=== PATIENT | male | born 1960 | race Two or more races ===

== ENCOUNTER 2021-01-03 17:13 | Emergency (ER) | payer MEDICAID ==
[~2021-01-03] VITALS: Ht 177.8 cm; Wt 85.0 kg
--- NOTE | 2021-01-03 17:54 | NUR ---
This pt was BIB [facility] for ETOH and inability to ambulate on his own. Pt became aggressive with this RN making a fist and pointing. Pt attempted to get out of bed. Victor Manueluirty called. This RN able to communicate with pt about POC including his need to sleep and not put himself at risk by trying to walk and then potentially falling. Pt layed back in bed. Bed rails up x2. This RN making frequent checks on pt to see if he's attempting to get out of bed, no attempts so far.
--- NOTE | 2021-01-03 19:00 | NUR ---
Pt requesting food, given. Bedside report to ANDREA Chung.
--- NOTE | 2021-01-03 19:04 | NUR ---
report recieved from abebe la. pt provided snacks per request, head ct ordered
--- NOTE | 2021-01-03 19:30 | NUR ---
pt to ct
--- NOTE | 2021-01-03 19:57 | NUR ---
PT ABLE TO WALK AND USE URINAL WITHOUT ASSISTANCE
[2021-01-03 20:06] VITALS: BP 134/85
== END 2021-01-03 20:17 | disposition home or self-care (01) ==
LOC: ED 18:47
DX: S09.90XA Unspecified injury of head, initial encounter (principal); F10.220 Alcohol dependence with intoxication, uncomplicated; X58.XXXA Exposure to other specified factors, initial encounter; Y93.89 Activity, other specified; Y92.89 Other specified places as the place of occurrence of the external cause; Y99.8 Other external cause status; Y90.0 Blood alcohol level of less than 20 mg/100 ml
CPT/HCPCS: 70450; 99284

== ENCOUNTER 2021-01-04 02:15 | Emergency (ER) | payer MEDICAID ==
[~2021-01-04] VITALS: Ht 182.9 cm; Wt 99.0 kg
--- NOTE | 2021-01-04 02:25 | NUR ---
PT BIB [facility] FOR ETOH INTOXICATION AND UNABLE TO AMBULATE. PT WAS FOUND [facility] LAYING ON THE GROUND. PT RESPONDS TO LOUD VERBAL STIMULI. VSS. ARANA AT BEDSIDE. CALL LIGHT IN REACH
[2021-01-04] MEDS ORDERED: THIAMINE 100MG TABLET PO ONE (02:30)
[2021-01-04 03:07] LABS: BASOPHILS % (AUTO) 0 % (0-1); EOSINOPHILS % (AUTO) 3 % (1-7); LYMPHOCYTES % (AUTO) 40 % (22-44); MEAN CORPUSCULAR HEMOGLOBIN 32.9 pg (27.5-34.5); MEAN CORPUSCULAR HGB CONC 34.2 g/dL (33.2-36.2); MEAN PLATELET VOLUME 7.5 fL (7.4-10.4); MONOCYTES % (AUTO) 11 % (2-9); NEUTROPHILS % (AUTO) 46 % (42-75); PLATELET COUNT 219 x10^3/uL (130-400); RED BLOOD COUNT 4.82 x10^6/uL (4.38-5.82); RED CELL DISTRIBUTION WIDTH 15.2 % (9.4-14.8)
[2021-01-04 03:16] LABS: ALBUMIN 3.3 g/dL (3.4-5.0); ANION GAP 8 mmol/L (5-15); CALCIUM 7.7 mg/dL (8.5-10.1); CHLORIDE 112 mmol/L (98-107); CREATININE 0.93 mg/dL (0.7-1.3)
[2021-01-04 03:19] LABS: MD NO
--- NOTE | 2021-01-04 04:09 | NUR ---
pt sleeping. vss. even rise and fall of chest observed. call light in reach
--- NOTE | 2021-01-04 05:17 | NUR ---
PT SLEEPING. PT ROUSES TO LOUD VOICE AND THEN FALLS BACK TO SLEEP. VSS. CALL LIGHT IN REACH
--- NOTE | 2021-01-04 06:12 | NUR ---
PT SLEEPING. EVEN RISE AND FALL OF CHEST OBSERVED. VSS. CALL LIGHT IN REACH
[2021-01-04 06:14] VITALS: BP 150/98
--- NOTE | 2021-01-04 06:29 | NUR ---
PT WOKE UP AND AMBULATED TO BATHROOM WITH A STEADY GAIT. PT SAID HE WANTED TO LEAVE. PT GIVEN CAB VOUCHER FOR SAFE DISCHARGE.
== END 2021-01-04 06:32 | disposition home or self-care (01) ==
LOC: ED 02:37
DX: F10.220 Alcohol dependence with intoxication, uncomplicated (principal); Z72.9 Problem related to lifestyle, unspecified; F12.20 Cannabis dependence, uncomplicated; Y90.0 Blood alcohol level of less than 20 mg/100 ml
CPT/HCPCS: 36415; 80048; 80320; 82040; 85025; 99283; G0480

== ENCOUNTER 2021-01-04 11:46 | Emergency (ER) | payer MEDICAID ==
[~2021-01-04] VITALS: Ht 172.7 cm; Wt 90.0 kg
--- NOTE | 2021-01-04 12:00 | NUR ---
PT BIB EMS FOR ETOH. WAS FOUND DOWN BY ZAIRA BAKER. PT WAS RECENTLY DCd FROM ER FOR SAME. [place] [facility] [place] RAILS UP.
--- NOTE | 2021-01-04 12:08 | NUR ---
pt refusing labs, swearing at staff, swinging arms and saying "don't touch me". provider notified. as
--- NOTE | 2021-01-04 12:22 | NUR ---
P/T stated that he can't blow anymore and doesn't want to attempt another test at this time @0037
--- NOTE | 2021-01-04 13:02 | NUR ---
Attempted to breathalyze pt uncoopertive.
--- NOTE | 2021-01-04 13:17 | NUR ---
pt sleeping, vss. as
--- NOTE | 2021-01-04 14:10 | NUR ---
resting in bed vss. as
--- NOTE | 2021-01-04 14:40 | NUR ---
ATTEMPTED BREATHALYZER 3RD TIME. PT UNCOOPERATIVE.
--- NOTE | 2021-01-04 14:44 | NUR ---
P/T DOESN'T FOLLOW COMMANDS BY NOT BLOWING ENOUGH TO GET A BREATHALIZER TEST DONE @2287
--- NOTE | 2021-01-04 15:17 | NUR ---
pt resting in bed, refusing to leave, asking for food, drowsing. as
[2021-01-04 15:18] VITALS: BP 149/87
== END 2021-01-04 15:33 | disposition home or self-care (01) ==
LOC: ED 11:53
DX: F10.220 Alcohol dependence with intoxication, uncomplicated (principal); R41.82 Altered mental status, unspecified; Y90.0 Blood alcohol level of less than 20 mg/100 ml
CPT/HCPCS: 99283

== ENCOUNTER 2021-01-06 09:51 | Emergency (ER) | payer MEDICAID, OTHER ==
[~2021-01-06] VITALS: Ht 177.8 cm; Wt 90.9 kg
--- NOTE | 2021-01-06 10:00 | NUR ---
BIB EMS FOR ETOH. F[facility]. PEPPER EMBASSADORS WALKED BY AND CALLED 911 TO HAVE PT'S TAKEN AWAY FROM AREA. PT NOTED TO BE 90.9 RECTAL TEMP. PROVIDED W/ WARM BLANKETS AND BEAR HUGGER.
--- NOTE | 2021-01-06 10:05 | NUR ---
ERP DR. ALFREDO AT BEDSIDE FOR EVAL.
--- NOTE | 2021-01-06 10:10 | NUR ---
WARMED IVF INITIATED FOR PT. ROONEY INSERTED AND IRRIGATED.
[2021-01-06] MEDS ORDERED: SODIUM CHLORIDE FLUSH 10ML SYR IVF ONE (10:30)
[2021-01-06] MEDS ORDERED: SODIUM CHLORIDE 0.9% 1,000ML IVBOLUS ONE (10:30)
--- NOTE | 2021-01-06 10:40 | NUR ---
PT TOLERATED ROONEY HAND IRRIGATION W/ WARMED FLUIDS
--- NOTE | 2021-01-06 10:56 | NUR ---
PT RESTING ON GURNEY. NADN. HOWARD.
[2021-01-06 11:00] LABS: BASOPHILS % (AUTO) 1 % (0-1); EOSINOPHILS % (AUTO) 1 % (1-7); LYMPHOCYTES % (AUTO) 25 % (22-44); MEAN CORPUSCULAR HEMOGLOBIN 32.3 pg (27.5-34.5); MEAN PLATELET VOLUME 8.2 fL (7.4-10.4); MONOCYTES % (AUTO) 13 % (2-9); NEUTROPHILS % (AUTO) 62 % (42-75); PLATELET COUNT 229 x10^3/uL (130-400); RED BLOOD COUNT 4.92 x10^6/uL (4.38-5.82); RED CELL DISTRIBUTION WIDTH 14.8 % (9.4-14.8)
[2021-01-06 11:03] LABS: MD NO
[2021-01-06 11:12] LABS: ALANINE AMINOTRANSFERASE 258 U/L (12-78); ALBUMIN 3.4 g/dL (3.4-5.0); ANION GAP 10 mmol/L (5-15); CALCIUM 8.3 mg/dL (8.5-10.1); CHLORIDE 108 mmol/L (98-107); CREATININE 0.84 mg/dL (0.7-1.3)
[2021-01-06 11:14] LABS: ALKALINE PHOSPHATASE 166 U/L (45-117); TOTAL PROTEIN 8.5 g/dL (6.4-8.2)
--- NOTE | 2021-01-06 11:36 | NUR ---
PT RESTING ON PATRICKRJACQUELINE. NADN. TEMP SLOWLY INCREASING.
--- NOTE | 2021-01-06 12:07 | NUR ---
REPORT GIVEN TO ANDREA RICKETTS.
--- NOTE | 2021-01-06 12:07 | NUR ---
PT RESTING ON PATRICKRJACQUELINE. NADN. TEMP SLOWLY INCREASING.
--- NOTE | 2021-01-06 13:17 | NUR ---
PT IN BED WITH NO SIGNS OR SYMPTOMS OF ACUTE DISTRESS NOTED RESPIRATIONS EVEN AND UNLABORED, ALERT AND AWAKE, STATES HIS NAME IS ANDREA. PT DENIES PAIN REPORTS BEING SLEEPY. PT ON CAR SALTER WITH MADISON HUGGER IN PLACE AND WARMED FLUIDS INFUSING. BED RAILS UP BILATERALLY AND CALL LIGHT WITHIN REACH
--- NOTE | 2021-01-06 13:53 | NUR ---
pt noted on monitor to desat to 88% with good pleth, rn in room to rouse pt, pt alert to voice, room air sat improving to 96% with waking, pt noted to continue to be somulent and desats when sleeping. this rn placed nc on pt at 2l/min to assist ventilation while sleeping. pt denies need or discomfort at this time no signs or symptoms of acute distress noted respirations even and unlabored. pt continues on indian blanket weaver with heather hugger and warmed fluids in place, bed rails up bilaterally and call light within reach
[2021-01-06 15:13] VITALS: BP 124/77
--- NOTE | 2021-01-06 15:14 | NUR ---
pt arousable to voice denies pain or discomfort no signs or symptoms of acute distress noted respirations even and unlabored supported by nc with o2 at 2l/min. pt denies pain or discomfort, oriented to presence of bergman catheter in place. pt instructed not to tug on bergman, pt verbalizes understanding and agreement. pt returns to position of comfort. hall monitor and heather hugger in place, bed rails up bilaterallyand call light within reach.
--- NOTE | 2021-01-06 15:50 | NUR ---
pt alert and awake asking to move bowels, rn in room to remove bergman. pt ambulated with steady gait and good balance, md in room to assess, states pt ready to dc. pt states he wants to eat before he goes. this rn ordered a dietary tray for pt. pt in bed with registered nurse cardiac in place satting well on room air, no signs or symptoms of acute distress noted respirations even and unlabored
--- NOTE | 2021-01-06 16:18 | NUR ---
pt with sandwich and meal tray at bedside, encouraged to finish his food so he can discharge. pt verbalizes understanding and agreement in bed with no signs or symptoms of acute distress noted respirations even and unlabored
--- NOTE | 2021-01-06 16:48 | NUR ---
pt up and awake, denies pain or discomfort provided meal tray to go. pt iv dc'd pt putting on clothes and ready to leave with all belongings and a snack, no signs or symptoms of acute distress noted respirations even and unlabored
== END 2021-01-06 16:54 | disposition home or self-care (01) ==
LOC: ED 16:00 → MERGE 17:16
DX: T68.XXXA Hypothermia, initial encounter (principal); K70.10 Alcoholic hepatitis without ascites; F10.120 Alcohol abuse with intoxication, uncomplicated; R94.31 Abnormal electrocardiogram [ECG] [EKG]; X58.XXXA Exposure to other specified factors, initial encounter; Y93.89 Activity, other specified; Y92.89 Other specified places as the place of occurrence of the external cause; Y99.8 Other external cause status; Y90.9 Presence of alcohol in blood, level not specified
CPT/HCPCS: 36415; 51702; 80053; 85025; 93005; 99285

== ENCOUNTER 2021-02-08 03:26 | Emergency (ER) | payer MEDICAID ==
[~2021-02-08] VITALS: Ht 172.7 cm; Wt 91.0 kg
--- NOTE | 2021-02-08 03:45 | NUR ---
PATIENT STATES "IM GOING TO KILL MYSELF FOR FREE. JUST WATCH. I WANT TO JUMP OFF A BRIDGE". PATIENT REPORTS HE HAS BEEN DRINKING ETOH TONIGHT BUT ONLY ORIENTED TO SELF AT THIS TIME. DR. DURHAM TO BEDSIDE. RN REPORTED OFF [facility] REPORT AND NEW REPORT OF [facility] AT THIS TIME. PATIENT ALSO REPORTS AH/VH BUT DENIES HI. PATIENT'S EYES ARE BLOOD SHOT AND RED AND PATIENT REPORTS THAT HE HAS NOT SLEPT IN APPROX. 5 DAYS. PATIENT REMOVES CLOTHING WITH ASSISTANCE AND ALL BELONGINGS PLACED IN PATIENT BELONGING BAGS AND PLACED IN SECURED LOCKED CABINET IN ER. HOSPITAL GOWN APPLIED TO PATIENT. WARM BLANKET PROVIDED. PATIENT DOES HAVE FLAKING SKIN TO BILATERAL FEET WITH MILD ERRYTHEMA. CALL VALLE IN REACH. NEURO CHECKS ORDERED. WILL CONTINUE TO MONITOR.
[2021-02-08 03:56] LABS: BASOPHILS % (AUTO) 0 % (0-1); EOSINOPHILS % (AUTO) 5 % (1-7); LYMPHOCYTES % (AUTO) 28 % (22-44); MEAN CORPUSCULAR HEMOGLOBIN 33.2 pg (27.5-34.5); MEAN CORPUSCULAR HGB CONC 34.3 g/dL (33.2-36.2); MONOCYTES % (AUTO) 4 % (2-9); NEUTROPHILS % (AUTO) 63 % (42-75); PLATELET COUNT 187 x10^3/uL (130-400); RED BLOOD COUNT 4.39 x10^6/uL (4.38-5.82); RED CELL DISTRIBUTION WIDTH 14.6 % (9.4-14.8)
[2021-02-08 03:57] LABS: MD NO
[2021-02-08] MEDS ORDERED: THIAMINE 100MG TABLET PO ONE (04:00)
[2021-02-08 04:08] LABS: ALANINE AMINOTRANSFERASE 208 U/L (12-78); ALBUMIN 2.9 g/dL (3.4-5.0); ANION GAP 9 mmol/L (5-15); CALCIUM 7.5 mg/dL (8.5-10.1); CHLORIDE 105 mmol/L (98-107); CREATININE 0.77 mg/dL (0.7-1.3); SALICYLATE LEVEL < 1.7 mg/dL (2.8-20.0)
[2021-02-08 04:20] LABS: ALKALINE PHOSPHATASE 178 U/L (45-117); TOTAL PROTEIN 7.8 g/dL (6.4-8.2)
[2021-02-08 04:40] LABS: AMPHETAMINE SCREEN, URINE Positive (Negative); BARBITURATE SCREEN, URINE Negative (Negative); BENZODIAZEPINE SCREEN, URINE Negative (Negative); CANNABINOID SCREEN, URINE Positive (Negative); COCAINE SCREEN, URINE Negative (Negative); METHADONE SCREEN, URINE Negative (Negative); OPIATE SCREEN, URINE Negative (Negative)
[2021-02-08] MEDS ORDERED: THIAMINE 100MG TABLET ONE (04:57)
--- NOTE | 2021-02-08 05:00 | NUR ---
ATTEMPTED TO PLACE N ON PATIENT HIS OXYGEN SATURATION ECREASED TO 88-89%. I NOTIFIED PATIENT OF WHAT I WAS DOING BEFORE DOING IT. WHEN I ATTEMPTED TO PLACE THIS ON PATIENT, PATIENT SWATTED ME AWAY AND HIT MY HANDS WITH MULTIPLE ATTEMPTS AND REPEATED "NO". RN EXPLAINED AGAIN TO PATIENT REASON HE NEEDED THIS AND PATIENT STATED "YOURE GOING TO KILL ME. NO. I DONT WANT IT". RN REASSURED PATIENT I WAS NOT TRYING TO HARM HIM BUT HE WAS NOT GETTING ENOUGH OXYGEN TO HIS BRAIN WHEN HE WAS SLEEPING DUE TO ETOH AND PATIENT STATED "NO. I DONT WANT IT". AT THIS TIME PATIENT DECLINES NC
--- NOTE | 2021-02-08 06:00 | NUR ---
PATIENT RESTING IN BED IN NAD WITH EYES CLOSED. CALL VALLE IN REACH. SAFETY MAINTAINED. WILL CONTINUE TO MONITOR
--- NOTE | 2021-02-08 06:51 | NUR ---
REPORT GIVEN TO LISBETH MENDEZ
--- NOTE | 2021-02-08 06:51 | NUR ---
REPORT FROM ANDREA MAYA FOR TRANSFER OF PATIENT CARE.
--- NOTE | 2021-02-08 07:12 | NUR ---
PATIENT LAYING IN GURNEY WITH EYES CLOSED, RESP EVEN AND UNLABORED, SUICIDE PRECAUTIONS IN PLACE, FREQUENT ROUNDING IN PLACE.
--- NOTE | 2021-02-08 07:51 | NUR ---
FOOD TRAY ORDERED.
--- NOTE | 2021-02-08 08:30 | NUR ---
BREAKFAST TRAY PROVIDED, NADN, VSS, SUICIDE PRECAUTIONS IN PLACE, FREQUENT ROUNDING.
--- NOTE | 2021-02-08 10:16 | NUR ---
PATIENT LAYING IN GURNEY WITH EYES CLOSED, RESP EVEN AND UNLABORED, SUICIDE PRECAUTIONS IN PLACE, FREQUENT ROUNDING.
--- NOTE | 2021-02-08 10:24 | NUR ---
PATIENT'S O2 DROPPED TO 85%, PLACED PATIENT ON 2 LPM NC WITHOUT DIFFICULTY, O2 SATURATION NOW 94%.
--- NOTE | 2021-02-08 11:05 | NUR ---
PATIENT AMBULATED TO BATHROOM WITH STEADY GAIT.
--- NOTE | 2021-02-08 11:41 | NUR ---
BREATHYLIZER PERFORMED, 0.171, INFORMED REBECCA SOOD. UNABLE TO EVALUATE PATIENT AT THIS TIME UNTIL HE CARMEN UP MORE.
--- NOTE | 2021-02-08 13:11 | NUR ---
LUNCH TRAY PROVIDED TO PATIENT, NADN, VSS, FREQUENT ROUNDING.
--- NOTE | 2021-02-08 13:38 | NUR ---
URINAL EMPTIED AND PLACED BACK WITHIN REACH. PATIENT LAYING IN GURNEY WITH EYES CLOSED, RESP EVEN AND UNLABORED, SIDE RAILS UP X2, CONNECTED TO MONITOR, FREQUENT ROUNDING. WAITING FOR PATIENT TO SOBER UP BEFORE PSYCH EVAL.
--- NOTE | 2021-02-08 13:50 | NUR ---
JULISSA PERSONN AT BEDSIDE FOR EVALUATION.
[2021-02-08] MEDS ORDERED: ONDANSETRON ODT 4 MG ONE (14:12)
--- NOTE | 2021-02-08 14:25 | NUR ---
PATIENT MEDICATED PER eMAR, WAITING FOR RESPONSE FROM [facility].
[2021-02-08] MEDS ORDERED: ONDANSETRON ODT 4 MG PO ONE (14:30)
--- NOTE | 2021-02-08 14:42 | NUR ---
TP RN: TAMARA W/ ACCEPT S/P NEGATIVE COVID SWAB.
--- NOTE | 2021-02-08 14:50 | NUR ---
ROBIN RN: COVID SWAB COLLECTED AND WALKED TO LAB BY QI MENDEZ.
[2021-02-08 15:54] VITALS: BP 139/84
--- NOTE | 2021-02-08 16:00 | NUR ---
CALLED REPORT TO ANDREA ACEVEDO FOR TRANSFER OF PATIENT CARE.
--- NOTE | 2021-02-08 16:05 | NUR ---
PATIENT WHEELED TO U WITH 2 ED TECHS, ALL PATIENT BELONGINGS TAKEN FROM LOCKED CABINET WITH ACCOUNT EXECUTIVE SALES REPRESENTATIVE TO FLOOR.
== END 2021-02-08 16:06 ==
LOC: ED 05:29
DX: F10.220 Alcohol dependence with intoxication, uncomplicated (principal); R45.851 Suicidal ideations; Z72.9 Problem related to lifestyle, unspecified; Y90.0 Blood alcohol level of less than 20 mg/100 ml
CPT/HCPCS: 36415; 80053; 80299; 80307; 80320; 80329; 85025; 87426; Q0162; G0480

== ENCOUNTER 2021-02-08 15:18 | Inpatient (IN) | payer MEDICAID ==
[~2021-02-08] VITALS: Ht 172.7 cm; Wt 90.7 kg
[2021-02-08] MEDS ORDERED: LORazepam 1MG TABLET PO PRN (15:30)
[2021-02-08] MEDS ORDERED: POLYETHYLENE GLYCOL 17 GM PACKET PO PRN (15:30)
[2021-02-08] MEDS ORDERED: BISACODYL 10 MG SUPP PR PRN (15:30)
[2021-02-08] MEDS ORDERED: ONDANSETRON ODT 4 MG PO PRN (15:30)
[2021-02-08 16:33] VITALS: BP 156/91
[2021-02-08 17:56] LABS: MICROSCOPIC INDICATED
[2021-02-08 20:05] VITALS: BP 144/77
[2021-02-08] MEDS: LORazepam 1MG TABLET PO SCH (20:27)
[2021-02-09] MEDS: LORazepam 1MG TABLET PO SCH ×4 (06:24→20:52)
[2021-02-09 07:10] VITALS: BP 157/87
[2021-02-09 08:02] LABS: CHOL/HDL RATIO 2.9; FREE T4 (FREE THYROXINE) 1.52 ng/dL (0.76-1.46); LDL/HDL RATIO 1.5 (0.5-3.0)
[2021-02-09] MEDS: THIAMINE 100MG TABLET PO SCH (08:28)
[2021-02-09] MEDS: FOLIC ACID 1 MG TABLET PO SCH (08:28)
[2021-02-09] MEDS: ACAMPROSATE 333 MG TABLET.DR PO SCH ×3 (10:33→20:52)
[2021-02-09 19:53] VITALS: BP 130/87
[2021-02-10] MEDS: LORazepam 1MG TABLET PO SCH ×4 (06:06→20:26)
[2021-02-10 07:10] VITALS: BP 123/84
[2021-02-10] MEDS: THIAMINE 100MG TABLET PO SCH (08:21)
[2021-02-10] MEDS: FOLIC ACID 1 MG TABLET PO SCH (08:21)
[2021-02-10] MEDS: ACAMPROSATE 333 MG TABLET.DR PO SCH ×3 (08:21→20:26)
[2021-02-10 19:52] VITALS: BP 133/88
[2021-02-11] MEDS: LORazepam 1MG TABLET PO SCH ×3 (05:29→15:41)
[2021-02-11 07:48] VITALS: BP 128/85
[2021-02-11] MEDS: ACAMPROSATE 333 MG TABLET.DR PO SCH ×2 (09:55→15:41)
[2021-02-11] MEDS: FOLIC ACID 1 MG TABLET PO SCH (09:55)
[2021-02-11] MEDS: THIAMINE 100MG TABLET PO SCH (09:55)
== END 2021-02-11 16:20 | disposition left against medical advice (07) | DRG 770 ==
LOC: 3E 16:12
PROVIDERS: ADMIT Psychiatry & Neurology Psychosomatic Medicine; ATTEND Psychiatry & Neurology Psychosomatic Medicine
DX: F10.94 Alcohol use, unspecified with alcohol-induced mood disorder (principal); R45.851 Suicidal ideations; G43.909 Migraine, unspecified, not intractable, without status migrainosus; E88.09 Other disorders of plasma-protein metabolism, not elsewhere classified; E83.51 Hypocalcemia; E66.9 Obesity, unspecified; Z68.30 Body mass index [BMI] 30.0-30.9, adult; Z79.899 Other long term (current) drug therapy; Z79.891 Long term (current) use of opiate analgesic; Z79.01 Long term (current) use of anticoagulants; Z56.0 Unemployment, unspecified; Z87.891 Personal history of nicotine dependence
CPT/HCPCS: 36415; 71045; 80053; 80061; 80299; 80307; 80320; 80329; 81001; 82140; 84439; 84443; 85025; 87426; 93005; Q0162; G0480

== ENCOUNTER 2021-02-16 03:41 | Emergency (ER) | payer MEDICAID ==
[~2021-02-16] VITALS: Ht 172.7 cm; Wt 91.0 kg
--- NOTE | 2021-02-16 04:02 | NUR ---
PT IN IMAGING AT THIS TIME
--- NOTE | 2021-02-16 04:26 | NUR ---
Pt back from CT, on monitor, PO fluids given. Will monitor.
[2021-02-16 04:56] VITALS: BP 129/84
--- NOTE | 2021-02-16 04:57 | NUR ---
Pt resting, MOA, non-labored breathing. On monitor, VSS.
--- NOTE | 2021-02-16 06:38 | NUR ---
Attempts to get pt up, pt unsteady on feet, still slurring words. Pt back to bed safety and will continue to let rest. Pt MOA, unlabored breathing. Will monitor.
--- NOTE | 2021-02-16 07:47 | NUR ---
PT SLEEPING ON THE GURNEY, RESPIRATIONS EVEN AND UNLABORED. CALL LIGHT WITHIN REACH.
--- NOTE | 2021-02-16 08:54 | NUR ---
PT UP, GAIT SLOW AND STEADY, LEFT WITHOUT D/C PAPERWORK.
== END 2021-02-16 08:54 | disposition home or self-care (01) ==
LOC: ED 05:41
DX: S09.90XA Unspecified injury of head, initial encounter (principal); F10.229 Alcohol dependence with intoxication, unspecified; W18.30XA Fall on same level, unspecified, initial encounter; Y93.89 Activity, other specified; Y92.89 Other specified places as the place of occurrence of the external cause; Y99.8 Other external cause status; Y90.0 Blood alcohol level of less than 20 mg/100 ml
CPT/HCPCS: 70450; 72125; 99285

== ENCOUNTER 2021-02-17 22:46 | Emergency (ER) | payer MEDICAID ==
[~2021-02-17] VITALS: Ht 175.3 cm; Wt 94.0 kg
[2021-02-17 23:24] LABS: BASOPHILS % (AUTO) 1 % (0-1); EOSINOPHILS % (AUTO) 2 % (1-7); LYMPHOCYTES % (AUTO) 23 % (22-44); MEAN CORPUSCULAR HEMOGLOBIN 33.4 pg (27.5-34.5); MEAN CORPUSCULAR HGB CONC 33.9 g/dL (33.2-36.2); MEAN PLATELET VOLUME 7.7 fL (7.4-10.4); MONOCYTES % (AUTO) 16 % (2-9); NEUTROPHILS % (AUTO) 58 % (42-75); PLATELET COUNT 293 x10^3/uL (130-400); RED BLOOD COUNT 4.37 x10^6/uL (4.38-5.82); RED CELL DISTRIBUTION WIDTH 14.7 % (9.4-14.8)
[2021-02-17 23:25] LABS: MD NO
--- NOTE | 2021-02-17 23:31 | NUR ---
pt resting quietly in bed with eyes closed and even unlabored respirations. no signs or symptoms of acute dsitress noted, pt cleaned and placed in briefs, no bm noted though mold repair technician had reported a possible bowel movement during ct. call light on chest, bed rails up bilaterally, bed in lowest position.
[2021-02-17 23:40] LABS: ALANINE AMINOTRANSFERASE 287 U/L (12-78); ALBUMIN 2.9 g/dL (3.4-5.0); ANION GAP 4 mmol/L (5-15); CALCIUM 7.8 mg/dL (8.5-10.1); CHLORIDE 106 mmol/L (98-107); CREATININE 0.71 mg/dL (0.7-1.3)
[2021-02-17 23:45] LABS: ALKALINE PHOSPHATASE 269 U/L (45-117); BILIRUBIN,TOTAL 0.9 mg/dL (0.2-1.0)
--- NOTE | 2021-02-17 23:47 | NUR ---
pt noted to be desatting on room air rn in room to assess pt placed on o2 via nasal cannula at 2l/min with spo2 improving to 94%. pt continues to be stuporous, no signs or symptoms of acute dsitress noted respiraitons even and unlabored. call light on chest, bed rails up bilaterally, and lights off in room for comfort.
--- NOTE | 2021-02-18 00:13 | NUR ---
REPORT FROM LILIAM MENDEZ. PT RESTING IN NAD. CALL LIGHT IN REACH.
--- NOTE | 2021-02-18 01:55 | NUR ---
REPORT TO RENO MENDEZ
--- NOTE | 2021-02-18 01:55 | NUR ---
REPORT FROM CHRISTIANA MENDEZ, PT CARE TRANSFERRED AT THIS TIME. PT RESTING ON GURNEY, LAYING ON BACK UNDER BLANKETS, APPEARS COMFORTABLE, NAD, EVEN AND UNLABORED RESPIRATIONS NOTED, EYES CLOSED, WCTM. MTF
--- NOTE | 2021-02-18 02:52 | NUR ---
PT WOKE UP AND TOOK OFF O2 SAT PROBES. PT ASKED IF HE'S READ TO GO, SAID YES. THEN STATES HE'S GOING BACK TO SLEEP. O2 SAT PROBE PLACED ON HAND AGAIN, AND PT RESTING. ON CR MONITOR
[2021-02-18 04:43] VITALS: BP 132/88
--- NOTE | 2021-02-18 04:44 | NUR ---
Patient given discharge instructions and they have confirmed that they understand the instructions. Patient ambulatory with steady gait. nad, denies additional questions or needs, provided bus pass for dc. pt dressed appropriately for weather upon dc. no perosonal belongings left in room after dc.
== END 2021-02-18 04:48 | disposition home or self-care (01) ==
LOC: EDBD 22:46 → MERGE 22:46 → ED 23:16
DX: S06.0X0A Concussion without loss of consciousness, initial encounter (principal); S00.81XA Abrasion of other part of head, initial encounter; S00.31XA Abrasion of nose, initial encounter; F10.129 Alcohol abuse with intoxication, unspecified; G31.2 Degeneration of nervous system due to alcohol; X58.XXXA Exposure to other specified factors, initial encounter; Y93.89 Activity, other specified; Y92.89 Other specified places as the place of occurrence of the external cause; Y99.8 Other external cause status
CPT/HCPCS: 36415; 70450; 80053; 80320; 85025; 99285; G0480

== ENCOUNTER 2021-02-27 15:35 | Emergency (ER) | payer MEDICAID ==
[~2021-02-27] VITALS: Ht 172.7 cm; Wt 79.5 kg
[2021-02-27 15:40] VITALS: BP 124/106
--- NOTE | 2021-02-27 15:47 | NUR ---
CISCO HO FROM OUTSIDE OF [facility] AT [address] PER EMS, PD WAS GOING TO ARREST PT FOR TRESPASSING AND PT STATED HE WANTED TO GO TO THE HOSPITAL. PT INTOXICATED, NOT ANSWERING ORIENTATION QUESTIONS, MAKING INAPPROPRIATE COMMENTS/GESTURES TO EMS. GCS 15. BS 113. PT ALSO ADMITS TO MARIJUANA USE AND POSSIBLE METH USE. UPON ADMISSION TO ER, PT MUMBLING, INTOXICATED, DIFFICULT TO UNDERSTAND. NO OBVIOUS MEDICAL COMPLAINT. STATES, "I'M DRUNK".
--- NOTE | 2021-02-27 16:36 | NUR ---
PT SLEEPING IN GURNEY, AWAKENS TO TOUCH. SPO2 WAS IN 80s ON RA. PLACED ON 2L O2 NC, IMPROVED TO 98%.
--- NOTE | 2021-02-27 19:00 | NUR ---
PT HAS BEEN SLEEPING IN [facility], AWAKENS TO TOUCH. O2 WAS APPLIED AT 1L VIA NC WHILE PT SLEEPING.
--- NOTE | 2021-02-27 20:50 | NUR ---
REPORTED TO KIM MENDEZ.
--- NOTE | 2021-02-27 20:56 | NUR ---
pt up and ambulatory in room, peed on floor, ready to dc, ambulated with steady gait out ambulance bay doors
== END 2021-02-27 21:00 | disposition home or self-care (01) ==
LOC: ED 19:23
DX: F10.220 Alcohol dependence with intoxication, uncomplicated (principal); Y90.0 Blood alcohol level of less than 20 mg/100 ml
CPT/HCPCS: 99283

== ENCOUNTER 2021-03-01 06:34 | Emergency (ER) | payer MEDICAID ==
[~2021-03-01] VITALS: Ht 172.7 cm; Wt 84.0 kg
--- NOTE | 2021-03-01 06:37 | NUR ---
BIB [facility] from [facility]; Report as follows: Pt was found in bathroom with bottle of Vodka, loss of unrianry incontinence. NAD, VSS.
--- NOTE | 2021-03-01 06:52 | NUR ---
REPORT FROM ANDREA KAUFMAN. PT SLEEPING ON [facility] [facility]. NAD/VSS
--- NOTE | 2021-03-01 06:59 | NUR ---
REPORT GIVEN TO ANDREA NGUYỄN.
--- NOTE | 2021-03-01 09:07 | NUR ---
PT SLEEPING ON GURNEY, WITH HOB ELEVATED. NAD/VSS. NO NEEDS AT THIS TIME
--- NOTE | 2021-03-01 10:50 | NUR ---
PT SLEEPING ON GURNEY, HOB ELEVATED. BED RAILS UP X2. NAD/VSS. NO NEEDS AT THIS TIME
--- NOTE | 2021-03-01 10:58 | NUR ---
PT UNABLE TO AMBULATE STEADILY. PT AROUSABLE, NO NEEDS AT THIS TIME
--- NOTE | 2021-03-01 11:21 | NUR ---
PT SLEEPING ON GURNEY, PT ABLE TO MOVE FROM SIDE TO BACK. HOB ELEVATED. NAD/VSS
[2021-03-01 11:56] VITALS: BP 126/74
--- NOTE | 2021-03-01 12:14 | NUR ---
Patient given discharge instructions and they have confirmed that they understand the instructions. Patient ambulatory with steady gait.
== END 2021-03-01 12:15 | disposition home or self-care (01) ==
LOC: ED 07:31
DX: F10.229 Alcohol dependence with intoxication, unspecified (principal); Y90.0 Blood alcohol level of less than 20 mg/100 ml
CPT/HCPCS: 99285

== ENCOUNTER 2021-07-11 17:00 | Emergency (ER) | payer MEDICAID ==
[~2021-07-11] VITALS: Ht 182.9 cm; Wt 80.0 kg
--- NOTE | 2021-07-11 17:19 | NUR ---
BIB BY [facility] FOR INABILITY TO WALK SECONDARY TO ETOH INTOXICATION
--- NOTE | 2021-07-11 17:38 | NUR ---
PT ATTACHED TO ALL CARDIAC AND VS MONITORS. VSS. DR DURHAM AT FOR PT HISTORY AND ASSESSMENT. PT NOT RESPONDING TO STAFF AND JUST STARES.
--- NOTE | 2021-07-11 18:02 | NUR ---
PT COOPERATIVE AND RESTING IN [facility] AT THIS TIME WITH CALL LIGHT WITHIN REACH. NADN. PT VSS AND UPDATED IN EMR.
[2021-07-11 18:48] LABS: BASOPHILS % (AUTO) 0 % (0-1); EOSINOPHILS % (AUTO) 3 % (1-7); LYMPHOCYTES % (AUTO) 34 % (22-44); MEAN CORPUSCULAR HEMOGLOBIN 32.5 pg (27.5-34.5); MEAN CORPUSCULAR HGB CONC 34.1 g/dL (33.2-36.2); MEAN PLATELET VOLUME 7.1 fL (7.4-10.4); MONOCYTES % (AUTO) 8 % (2-9); NEUTROPHILS % (AUTO) 55 % (42-75); PLATELET COUNT 227 x10^3/uL (130-400); RED CELL DISTRIBUTION WIDTH 14.4 % (9.4-14.8)
[2021-07-11 19:03] LABS: ALANINE AMINOTRANSFERASE 143 U/L (12-78); ALBUMIN 2.9 g/dL (3.4-5.0); ANION GAP 8 mmol/L (5-15); CALCIUM 7.6 mg/dL (8.5-10.1); CHLORIDE 107 mmol/L (98-107); CREATININE 0.83 mg/dL (0.7-1.3)
[2021-07-11 19:07] LABS: ALKALINE PHOSPHATASE 125 U/L (45-117); BILIRUBIN,TOTAL 0.7 mg/dL (0.2-1.0); TOTAL PROTEIN 8.6 g/dL (6.4-8.2); TROPONIN I < 0.015 ng/mL (0.000-0.045)
[2021-07-11 19:10] VITALS: BP 141/77
--- NOTE | 2021-07-11 19:11 | NUR ---
PT ASLEEP IN [facility] AT THIS TIME. PT VSS AND UPDATED IN EMR.
--- NOTE | 2021-07-11 19:56 | NUR ---
PT CAME INTO HALLWAY AND URINATED ALL OVER HIS ROOM AND FLOOR. PT EDUCATED ON THE NEED TO USE A URINAL AND INSTRUCTED TO REMAIN IN BED.
--- NOTE | 2021-07-11 20:49 | NUR ---
ATTEMPTED TO ROADTEST PT FOR D/C WITH TAXI VOUCHER. PT WITH UNSTEADY GAIT AND UNABLE TO SAFELY D/C AT THIS TIME.
--- NOTE | 2021-07-11 21:13 | NUR ---
REPORT OF PT TO ANDREA GILLETTE.
--- NOTE | 2021-07-11 22:35 | NUR ---
PATIENT REMAINS UNSTEADY ON HIS FEET.
--- NOTE | 2021-07-11 23:33 | NUR ---
PATIENT AMBULATORY TO DISCHARGE DESK. PROVIDED WITH CAB AND DISCHARGE PAPERWORK.
--- NOTE | 2021-07-11 23:34 | NUR ---
Patient given discharge instructions and they have confirmed that they understand the instructions. Patient ambulatory with steady gait. NAD, all questions answered appropriately, denies additional needs at this time. No personal belongings left in room after discharge.
== END 2021-07-11 23:36 | disposition home or self-care (01) ==
LOC: ED 21:24
DX: F10.120 Alcohol abuse with intoxication, uncomplicated (principal); R94.31 Abnormal electrocardiogram [ECG] [EKG]; R06.89 Other abnormalities of breathing; Y90.0 Blood alcohol level of less than 20 mg/100 ml
CPT/HCPCS: 36415; 71045; 80053; 80320; 84484; 85025; 93005; 99285; G0480